=== PATIENT | male | born 1975 | race Two or more races ===

== ENCOUNTER 2016-12-22 15:57 | Emergency (ER) | payer MEDICAID, OTHER ==
[~2016-12-22] VITALS: Ht 172.7 cm; Wt 77.1 kg
--- NOTE | 2016-12-22 16:15 | NUR ---
[id number] FROM STORE: ETOH INTOXICATED. NOTED COMBATIVE AND VERBALLY ABUSIVE. SEEN BY MD FOR EVAL. VSS. SAFETY AND COMFORT MEASURES PROVIDED. WILL MONITOR.
--- NOTE | 2016-12-22 16:36 | NUR ---
FLIGHT ATTENDANT AT FOR BLOOD DRAW. URINE SAMPLE OBTAINED, SENT.
[2016-12-22 16:40] LABS: BASOPHILS # (AUTO) 0.1 /CMM (0.0-0.2); BASOPHILS % (AUTO) 0.8 % (0.0-2.0); EOSINOPHILS # (AUTO) 0.1 /CMM (0.0-0.7); EOSINOPHILS % (AUTO) 1.4 % (0.0-6.0); HEMATOCRIT 37 % (39-51); HEMOGLOBIN 12.5 g/dL (13.5-17.5); LYMPHOCYTES % (AUTO) 30.2 % (20.0-44.0); MEAN CORPUSCULAR HEMOGLOBIN 28 PG (26.0-33.0); MEAN CORPUSCULAR HGB CONC 34 g/dl (31.0-36.0); MEAN CORPUSCULAR VOLUME 81 fL (80-96); MONOCYTES # (AUTO) 0.4 /CMM (0.1-1.30); NEUTROPHILS # (AUTO) 4.1 /CMM (1.8-8.9); NEUTROPHILS % (AUTO) 61.6 % (43.0-81.0); PLATELET COUNT (AUTO) 170 /CMM (150-450); RDW COEFFICIENT OF VARIATION 15.8 (11.5-15.0); RED BLOOD CELL COUNT(AUTO) 4.57 MIL/uL (4.5-6.0); WHITE BLOOD COUNT (AUTO) 6.6 K/uL (4.3-11.0)
[2016-12-22 16:52] LABS: CALCIUM, SERUM 8.3 mg/dL (8.5-10.1); CREATININE 0.9 mg/dL (0.6-1.3); POTASSIUM 4.1 mmol/L (3.5-5.1)
[2016-12-22 16:56] LABS: APPEARANCE,URINE CLEAR (CLEAR); BILIRUBIN,URINE NEGATIVE (NEGATIVE); BLOOD, URINE NEGATIVE Ery/uL (NEGATIVE); COLOR,URINE YELLOW (YELLOW); KETONES,URINE NEGATIVE (NEGATIVE); LEUKOCYTE ESTERASE ,URINE NEGATIVE (NEGATIVE); NITRITE, URINE NEGATIVE (NEGATIVE); PH,URINE 5.5 (5.0-8.0); PROTEIN,URINE NEGATIVE (NEGATIVE); UGLUCOSE NEGATIVE (NEGATIVE); UROBILINOGEN,URINE 0.2 EU/dL (0.2)
[2016-12-22 16:57] LABS: ALBUMIN 3.6 g/dL (3.4-5.0); BILIRUBIN,DIRECT 0.1 mg/dL (0.0-0.2); BILIRUBIN,TOTAL 0.3 mg/dL (0.2-1.0); TOTAL PROTEIN, SERUM 6.8 g/dL (6.4-8.2)
[2016-12-22 16:58] LABS: SALICYLATE 2.1 mg/dL (2.8-20.0)
--- NOTE | 2016-12-22 18:59 | NUR ---
Pt ambulatory with a steady gait.
[2016-12-22 19:00] VITALS: BP 118/71
--- NOTE | 2016-12-22 19:00 | NUR ---
Patient discharged to home in stable condition. Written and verbal after care instructions given. Patient verbalizes understanding of instruction.
== END 2016-12-22 19:00 | disposition home or self-care (01) ==
LOC: ER 16:02
DX: F10.129 Alcohol abuse with intoxication, unspecified (principal)
CPT/HCPCS: 36415; 80048-TC; 80076-TC; 80305; 81000-TC; 85025-TC; A4606; G0480; Z7610

== ENCOUNTER 2020-05-21 21:40 | Emergency (ER) | payer MEDICAID ==
[~2020-05-21 21:40] MED LIST: GABA600T12 PO; SERT-439 PO; TRAZ-257 PO
== END 2020-05-21 23:28 | disposition left against medical advice (07) ==
LOC: ER 21:40
DX: Z53.21 Procedure and treatment not carried out due to patient leaving prior to being seen by health care provider (principal)

== ENCOUNTER 2020-06-03 10:10 | Emergency (ER) | payer MEDICAID ==
[~2020-06-03] VITALS: Ht 170.2 cm; Wt 77.1 kg
--- NOTE | 2020-06-03 10:10 | NUR ---
Pt called to triage. Pt not in waiting room
--- NOTE | 2020-06-03 11:12 | NUR ---
BLOOD DRAWN AND COVID SWAB SENT. PATIENT PLACED BACK IN THE WAITING ROOM.
[2020-06-03 11:46] LABS: CALCIUM, SERUM 8.8 mg/dL (8.5-10.1); CARBON DIOXIDE 25 mmol/L (21-32); CHLORIDE 105 mmol/L (98-107); CREATININE 0.7 mg/dL (0.6-1.3); GLUCOSE 86 mg/dL (74-106); POTASSIUM 3.6 mmol/L (3.5-5.1); SODIUM SERUM 142 mmol/L (136-145); UREA NITROGEN, BLOOD 11 mg/dL (7-18)
[2020-06-03 11:47] LABS: BASOPHILS # (AUTO) 0.1 /CMM (0.0-0.2); BASOPHILS % (AUTO) 1.9 % (0.0-2.0); EOSINOPHILS % (AUTO) 4.5 % (0.0-6.0); HEMATOCRIT 42 % (39-51); HEMOGLOBIN 13.5 g/dL (13.5-17.5); LYMPHOCYTES # (AUTO) 2.4 /CMM (0.8-4.8); LYMPHOCYTES % (AUTO) 48.5 % (20.0-44.0); MEAN CORPUSCULAR HGB CONC 32 g/dl (31.0-36.0); MEAN CORPUSCULAR VOLUME 85 fL (80-96); MONOCYTES # (AUTO) 0.3 /CMM (0.1-1.30); MONOCYTES % (AUTO) 6.1 % (2.0-12.0); NEUTROPHILS # (AUTO) 1.9 /CMM (1.8-8.9); PLATELET COUNT (AUTO) 204 /CMM (150-450); RED BLOOD CELL COUNT(AUTO) 4.93 MIL/uL (4.5-6.0)
[2020-06-03 11:52] LABS: ALANINE AMINOTRANSFERASE 41 U/L (12-78); ALBUMIN 4.1 g/dL (3.4-5.0); ALCOHOL, BLOOD 205 mg/dL (0-0); ALKALINE PHOSPHATASE 96 U/L (46-116); ASPARTATE AMINOTRANSFERASE 48 U/L (15-37); BILIRUBIN,DIRECT 0.2 mg/dL (0.0-0.2); BILIRUBIN,TOTAL 0.9 mg/dL (0.2-1.0); TOTAL PROTEIN, SERUM 7.7 g/dL (6.4-8.2)
[2020-06-03 11:54] LABS: ACETAMINOPHEN < 10 ug/ml (10-30)
--- NOTE | 2020-06-03 13:45 | NUR ---
CALLED [facility] FAXED CLINICALS
[2020-06-03 14:42] VITALS: BP 130/78
--- NOTE | 2020-06-03 15:37 | NUR ---
ACCEPTED AT [facility] ACCEPTING: DR ANDERSON INTERNAL MED MD: DR SHEIKH CALL FOR REPORT [phone] EXT [id number]
--- NOTE | 2020-06-03 16:00 | NUR ---
Patient not given written and verbal discharge instructions. Patient is ambulatory with steady gait. Patient not given list of available shelters in surrounding area. Left facility. Made MD aware
--- NOTE | 2020-06-03 16:00 | NUR ---
PATIENT NOT IN THE WAITING ROOM. MADE MD AWARE.
--- NOTE | 2020-06-03 16:03 | NUR ---
Patient eloped from facility. ER MD notified.
== END 2020-06-03 16:02 | disposition left against medical advice (07) ==
LOC: ER 10:14
DX: F99 Mental disorder, not otherwise specified (principal); R45.851 Suicidal ideations; F19.10 Other psychoactive substance abuse, uncomplicated; Z86.73 Personal history of transient ischemic attack (TIA), and cerebral infarction without residual deficits; Z20.822 Contact with and (suspected) exposure to COVID-19; Z59.0 Homelessness; F41.8 Other specified anxiety disorders; Z79.899 Other long term (current) drug therapy
CPT/HCPCS: 80048-TC; 80076-TC; 85025-TC; G0480

== ENCOUNTER 2020-06-23 06:03 | Emergency (ER) | payer MEDICAID ==
[~2020-06-23] VITALS: Ht 172.7 cm; Wt 68.0 kg
[2020-06-23] MEDS ORDERED: CHLORDIAZEPOXIDE HCL 25 MG CAPSULE ONE (06:44)
[2020-06-23] MEDS ORDERED: CHLO25CA22 PO (06:45)
--- NOTE | 2020-06-23 06:48 | NUR ---
Patient discharged to home in stable condition. Written and verbal after care instructions given. Patient verbalizes understanding of instruction.
[2020-06-23 06:49] VITALS: BP 132/78
[2020-06-23] MEDS ORDERED: ONDANSETRON 4 MG TAB.RAPDIS ONE (06:51)
[2020-06-23] MEDS ORDERED: CHLORDIAZEPOXIDE HCL 25 MG CAPSULE PO ONE (07:00)
[2020-06-23] MEDS ORDERED: ONDANSETRON 4 MG TAB.RAPDIS SL ONE (07:00)
== END 2020-06-23 06:49 | disposition home or self-care (01) ==
LOC: ER 06:04
DX: F13.10 Sedative, hypnotic or anxiolytic abuse, uncomplicated (principal); F32.9 Major depressive disorder, single episode, unspecified; F41.9 Anxiety disorder, unspecified; F17.200 Nicotine dependence, unspecified, uncomplicated; F10.10 Alcohol abuse, uncomplicated; Y90.9 Presence of alcohol in blood, level not specified; Z79.899 Other long term (current) drug therapy; Z86.73 Personal history of transient ischemic attack (TIA), and cerebral infarction without residual deficits; Z98.890 Other specified postprocedural states
CPT/HCPCS: 99283; Q0162

== ENCOUNTER 2020-09-15 23:43 | Emergency (ER) | payer MEDICAID ==
[~2020-09-15] VITALS: Ht 172.7 cm; Wt 81.6 kg
[~2020-09-15 23:43] MED LIST changes: +CHLO25CA22 PO
--- NOTE | 2020-09-15 23:50 | NUR ---
PT BIBSELF C/O SUICIDAL IDEATION WITH PLAN TO JUMP OFF [place]. PT AAOX4. CALM AND COOPERATIVE. VITAL SIGNS STABLE. RESPIRATIONS EVEN AND UNLABORED. AMBULATORY WITH STEADY GAIT. NO ACUTE DISTRESS NOTED AT THIS TIME. WILL CONTINUE TO MONITOR
--- NOTE | 2020-09-15 23:56 | NUR ---
PLACE PT ON HOSPITAL GOWN, ALL BELONGINGS REMOVED FROM ROOM AND PLACED IN A LOCKED HOSPITAL LOCKER. 1:1 SITTER AT BEDSIDE FOR PT SAFETY.
--- NOTE | 2020-09-16 00:14 | NUR ---
COVID SWAB COLLECTED AND SENT TO LAB
--- NOTE | 2020-09-16 00:20 | NUR ---
LOG INSPECTOR AT BEDSIDE FOR BLOOD DRAW
[2020-09-16 00:29] LABS: BASOPHILS % (AUTO) 1.1 % (0.0-2.0); EOSINOPHILS % (AUTO) 3.6 % (0.0-6.0); HEMATOCRIT 39 % (39-51); HEMOGLOBIN 12.9 g/dL (13.5-17.5); LYMPHOCYTES # (AUTO) 1.4 /CMM (0.8-4.8); LYMPHOCYTES % (AUTO) 34.4 % (20.0-44.0); MEAN CORPUSCULAR HGB CONC 33 g/dl (31.0-36.0); MEAN CORPUSCULAR VOLUME 86 fL (80-96); MONOCYTES # (AUTO) 0.4 /CMM (0.1-1.30); MONOCYTES % (AUTO) 10.8 % (2.0-12.0); NEUTROPHILS % (AUTO) 50.1 % (43.0-81.0); PLATELET COUNT (AUTO) 188 /CMM (150-450); RED BLOOD CELL COUNT(AUTO) 4.51 MIL/uL (4.5-6.0)
[2020-09-16 00:44] LABS: ALANINE AMINOTRANSFERASE 54 U/L (12-78); ALBUMIN 3.7 g/dL (3.4-5.0); ALCOHOL, BLOOD 60 mg/dL (0-0); ALKALINE PHOSPHATASE 114 U/L (46-116); ASPARTATE AMINOTRANSFERASE 65 U/L (15-37); BILIRUBIN,DIRECT 0.2 mg/dL (0.0-0.2); BILIRUBIN,TOTAL 0.9 mg/dL (0.2-1.0); CALCIUM, SERUM 8.7 mg/dL (8.5-10.1); CARBON DIOXIDE 26 mmol/L (21-32); CHLORIDE 102 mmol/L (98-107); CREATININE 0.7 mg/dL (0.6-1.3); GLUCOSE 103 mg/dL (74-106); POTASSIUM 3.8 mmol/L (3.5-5.1); SODIUM SERUM 138 mmol/L (136-145); TOTAL PROTEIN, SERUM 6.9 g/dL (6.4-8.2); UREA NITROGEN, BLOOD 14 mg/dL (7-18)
[2020-09-16 00:48] LABS: ACETAMINOPHEN 0 ug/ml (10-30)
--- NOTE | 2020-09-16 04:16 | NUR ---
URINE COLLECTED AND SENT TO LAB
[2020-09-16 04:20] LABS: BILIRUBIN,URINE Negative (NEGATIVE); COLOR,URINE YELLOW (YELLOW); LEUKOCYTE ESTERASE ,URINE Trace (NEGATIVE); NITRITE, URINE Negative (NEGATIVE); PH,URINE 7.5 (5.0-8.0); PROTEIN,URINE Negative (NEGATIVE); UGLUCOSE Negative (NEGATIVE); UROBILINOGEN,URINE 0.2 EU/dL (0.2)
[2020-09-16 04:34] LABS: BACTERIA,URINE Moderate /HPF (None Seen); RBC,URINE 0-2 /HPF (0-2); SQUAMOUS EPITHELIAL CELL,UR None Seen /HPF (None Seen)
[2020-09-16 04:38] LABS: URINE AMORPHOUS PHOSPHATES Many /HPF (None Seen)
--- NOTE | 2020-09-16 04:40 | NUR ---
CLINICAL AND FACESHEET FAXED TO [facility] INTAKE FOR VOLUNTARY PSYCH ADMISSION.
[2020-09-16] MEDS ORDERED: ONDANSETRON 4 MG TAB.RAPDIS SL ONE (06:30)
[2020-09-16] MEDS ORDERED: ONDANSETRON HCL/PF 4 MG/2 ML VIAL ONE (06:35)
[2020-09-16] MEDS ORDERED: ONDANSETRON 4 MG TAB.RAPDIS ONE (06:36)
--- NOTE | 2020-09-16 07:01 | NUR ---
TRANSFER INFORMATION: PT ACCEPTED AT [facility] ACCEPTING MD BARNARD PHONE NUMBER FOR REPORT
--- NOTE | 2020-09-16 07:06 | NUR ---
[facility] ETA 0830 TO [place].
--- NOTE | 2020-09-16 09:08 | NUR ---
REPORT GIVEN TO WIN HERNANDEZ AT [facility].
[2020-09-16 09:15] VITALS: BP 125/65
--- NOTE | 2020-09-16 09:18 | NUR ---
PATIENT TRANSFERRED TO [facility] IN STABLE CONDITION.
--- NOTE | 2020-09-16 09:47 | NUR ---
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 No further SS interventions needed at this time.
== END 2020-09-16 09:22 ==
LOC: ER 23:50
DX: R45.851 Suicidal ideations (principal); F19.10 Other psychoactive substance abuse, uncomplicated; F15.10 Other stimulant abuse, uncomplicated; Z20.822 Contact with and (suspected) exposure to COVID-19; Z86.73 Personal history of transient ischemic attack (TIA), and cerebral infarction without residual deficits; F41.9 Anxiety disorder, unspecified; F32.9 Major depressive disorder, single episode, unspecified; Z86.69 Personal history of other diseases of the nervous system and sense organs; Z79.899 Other long term (current) drug therapy
CPT/HCPCS: 36415; 80048; 80076; 80143; 80307; 80320; 81001; 85025; 87077; 87086; 87426; 99285; C9803; Q0162; G0480; J2405